=== PATIENT | male | born 1985 | race Caucasian/White ===

== ENCOUNTER 2019-06-24 14:17 | Inpatient (IN) | payer OTHER ==
[~2019-06-24] VITALS: Ht 193 cm; Wt 99.4 kg
[2019-06-24 16:00] VITALS: BP 118/74
[2019-06-24 16:15] LABS: BILIRUBIN NEGATIVE (NEGATIVE); BLOOD NEGATIVE (NEGATIVE); CLARITY CLEAR (CLEAR); COLOR YELLOW (YELLOW); GLUCOSE NEGATIVE (NEGATIVE); KETONE NEGATIVE (NEGATIVE); LEUKO ESTERASE NEGATIVE (NEGATIVE); NITRITE NEGATIVE (NEGATIVE); UROBILINOGEN 0.2 E.U./dl (0.2-1.0)
[2019-06-24 16:24] LABS: MUCOUS 1+; URINE AMPHETAMINES < 1000 (1000ng/ml); URINE BARBITURATES < 200 (200ng/ml); URINE BENZODIAZEPINES < 200 (200ng/ml); URINE CANNABINOIDS (THC) < 50 (50ng/ml); URINE COCAINE > 300 (300ng/ml); URINE METHADONE < 300 (300ng/ml); URINE OPIATES > 300 (300ng/ml)
[2019-06-24] MEDS ORDERED: GEMFIBROZIL600 MG PO (16:30)
[2019-06-24] MEDS ORDERED: OMEPRAZOLE40 MG PO (16:30)
[2019-06-24] MEDS ORDERED: SIMVASTATIN20 MG PO (16:31)
[2019-06-24] MEDS ORDERED: LATU120T PO (16:31)
[2019-06-24] MEDS ORDERED: LAMICTAL100 MG PO (16:32)
[2019-06-24] MEDS ORDERED: KLONOPIN2 M1 PO (16:32)
[2019-06-24 16:43] LABS: URINE PHENCYCLIDINE < 25 (25ng/ml)
[2019-06-24 18:25] LABS: BASO # 0.1 10*3/uL (0.0-0.1); BASO % 0.5 % (0.0-1.0); EOS # 0.5 10*3/uL (0.0-0.4); EOS % 4.9 % (1.0-4.0); HEMATOCRIT 45.2 % (42.0-52.0); HEMOGLOBIN 15.1 g/dl (14.0-18.0); LYMPH # 3.2 10*3/uL (1.3-4.4); LYMPH % 32.5 % (27.0-41.0); MEAN CELL VOLUME 87.3 fl (80.0-94.0); MEAN CORPUSCULAR HGB 29.2 pg (27.0-31.0); MEAN CORPUSCULAR HGB CONC 33.4 g/dl (33.0-37.0); MEAN PLATELET VOLUME 11.2 fl (9.6-12.3); MONO # 0.5 10*3/uL (0.1-1.0); MONO % 5.2 % (3.0-9.0); NEUT # 5.6 10*3/uL (2.3-7.9); NEUT % 56.4 % (47.0-73.0); PLATELET COUNT AUTOMATED 323 10*3/uL (130-400); RED BLOOD COUNT 5.18 10*6/uL (4.50-5.90); RED CELL DISTRI WIDTH 13.1 % (0-14.5); WHITE BLOOD COUNT 9.8 10*3/uL (4.8-10.8)
[2019-06-24 18:41] LABS: ALBUMIN 4.2 gm/dl (3.1-4.5); ALKALINE PHOSPHATASE 111 U/L (45-117); BUN 14 mg/dl (7-24); CHLORIDE 108 mmol/L (98-107); CREATININE 1.34 mg/dL (0.70-1.30); POTASSIUM 3.8 mmol/L (3.5-5.1); SGOT/AST 13 IU/L (3-35); SGPT/ALT 27 U/L (12-78); SODIUM 140 mmol/L (136-145); TOTAL PROTEIN 7.1 gm/dL (6.4-8.2)
[2019-06-24 18:42] LABS: ETHYL ALCOHOL < 3.0 mg/dl (<3)
[2019-06-24 20:00] VITALS: BP 121/78
[2019-06-25] VITALS: BP 116/62
[2019-06-25 07:30] VITALS: BP 108/62
[2019-06-25 16:00] VITALS: BP 129/67
[2019-06-25 20:00] VITALS: BP 131/78
[2019-06-26] VITALS: BP 143/85
[2019-06-26 08:00] VITALS: BP 110/68
[2019-06-26 16:00] VITALS: BP 132/85
[2019-06-26 20:00] VITALS: BP 131/79
[2019-06-27] VITALS: BP 125/71
[2019-06-27 06:36] LABS: BASO % 0.6 % (0.0-1.0); EOS # 0.5 10*3/uL (0.0-0.4); EOS % 6.9 % (1.0-4.0); HEMATOCRIT 43.4 % (42.0-52.0); HEMOGLOBIN 14.4 g/dl (14.0-18.0); LYMPH # 2.4 10*3/uL (1.3-4.4); LYMPH % 33.4 % (27.0-41.0); MEAN CELL VOLUME 90.2 fl (80.0-94.0); MEAN CORPUSCULAR HGB 29.9 pg (27.0-31.0); MEAN CORPUSCULAR HGB CONC 33.2 g/dl (33.0-37.0); MEAN PLATELET VOLUME 11.2 fl (9.6-12.3); MONO # 0.5 10*3/uL (0.1-1.0); MONO % 6.4 % (3.0-9.0); NEUT # 3.7 10*3/uL (2.3-7.9); PLATELET COUNT AUTOMATED 251 10*3/uL (130-400); RED BLOOD COUNT 4.81 10*6/uL (4.50-5.90); WHITE BLOOD COUNT 7.2 10*3/uL (4.8-10.8)
[2019-06-27 06:48] LABS: CREATININE 1.19 mg/dL (0.70-1.30)
[2019-06-27 08:00] VITALS: BP 120/78
[2019-06-27] MEDS ORDERED: ZOFRAN 4 MG ED2 TAB PO (09:22)
[2019-06-27] MEDS ORDERED: ATARAX,VISTARIL50 MG PO (09:22)
[2019-06-27] MEDS ORDERED: ROPINIROLE HYD0.5 MG PO (10:58)
== END 2019-06-27 10:00 | disposition home or self-care (01) | DRG 897 ==
LOC: 4E 14:17
PROVIDERS: Student in an Organized Health Care Education/Training Program; ADMIT Family Medicine
DX: F11.23 Opioid dependence with withdrawal (principal); F14.90 Cocaine use, unspecified, uncomplicated; F60.3 Borderline personality disorder; F41.9 Anxiety disorder, unspecified; F31.9 Bipolar disorder, unspecified; F98.8 Other specified behavioral and emotional disorders with onset usually occurring in childhood and adolescence; F17.210 Nicotine dependence, cigarettes, uncomplicated; E78.5 Hyperlipidemia, unspecified; R73.9 Hyperglycemia, unspecified; E66.3 Overweight; D72.1 Eosinophilia; N28.9 Disorder of kidney and ureter, unspecified; E87.8 Other disorders of electrolyte and fluid balance, not elsewhere classified; K21.9 Gastro-esophageal reflux disease without esophagitis; Z90.49 Acquired absence of other specified parts of digestive tract; Z71.6 Tobacco abuse counseling; Z82.49 Family history of ischemic heart disease and other diseases of the circulatory system; Z88.0 Allergy status to penicillin; Z79.899 Other long term (current) drug therapy